=== PATIENT | male | born 1960 | race Caucasian/White ===

== ENCOUNTER → 2016-08-31 | Outpatient (CLI) | payer MEDICAID ==
--- NOTE | 2016-08-31 16:33 | CT ---
EXAMINATION TYPE: CT angio chest DATE OF EXAM: 08/31/2016 3:57 PM COMPARISON: NONE HISTORY: Abnormal chest x-ray at chiropractor. Thoracic aneurysm. CT DLP: 972.00 mGycm Automated exposure control for dose reduction was used. CONTRAST: CTA scan of the thorax is performed with IV Contrast, patient injected with 100 mL of Omnipaque 350, pulmonary embolism protocol. . FINDINGS: The lungs are clear. There is no significant axillary or hilar adenopathy. There is some shotty mediastinal adenopathy. There is no evidence of pulmonary embolus. The aortic root is dilated measuring 3.8 cm. At the level of the proximal arch, the aorta measures 3. 2 cm. The proximal descending thoracic aorta is normal in caliber measuring 2.8 cm. At the level of t he aortic hiatus, the aorta is normal in caliber measuring 2.4 cm. The heart is not enlarged. There i s no pleural or pericardial fluid. Visualized upper abdominal structures are normal. There is some minimal degenerative hypertrophic spondylosis within the spine. IMPRESSION: MINIMAL ASCENDING THORACIC AORTIC ANEURYSM.
== END | disposition home or self-care (01) ==
LOC: RADCTMAIN 15:27
PROVIDERS: ATTEND Internal Medicine
DX: I71.2 Thoracic aortic aneurysm, without rupture (principal)
CPT/HCPCS: 71275; Q9967

== ENCOUNTER → 2017-10-01 | Outpatient (CLI) | payer MEDICAID ==
--- NOTE | 2017-10-01 12:22 | CT ---
EXAMINATION TYPE: CT angio chest DATE OF EXAM: 10/01/2017 COMPARISON: August 31, 2016 HISTORY: f/u aortic aneurysm CT DLP: 709.2 mGycm CONTRAST: CTA thoracic aorta with 3-D reconstruction is performed and with IV Contrast, patient injected with 1 00 mL of Omnipaque 350. Contrast CTA of the thoracic aorta was performed from the lung apex through the upper abdomen. 3D re construction imaging obtained at a separate workstation. CT Chest: THORACIC AORTA: There is ectasia of the aortic root to noted measuring 3.7 cm AP dimension versus 3.8 cm previously. No evidence for aneurysm of the aortic arch and descending thoracic aorta. No complic ating factors such as dissection or retroperitoneal hematoma. LUNGS: The lungs are clear and free of infiltrate or atelectasis. No pulmonary nodule or mass is det ected. No pleural effusion or CT evidence of interstitial lung disease. MEDIASTINUM: No evidence for mediastinal hematoma. The heart is not enlarged. No evidence for med iastinal mass or adenopathy. HILAR STRUCTURES: No evidence for mass. No hilar adenopathy is appreciated. OTHER: No significant abnormality. IMPRESSION- Stable ectasia of the ascending thoracic aorta.
== END | disposition home or self-care (01) ==
LOC: RADCTMAIN 10:30
PROVIDERS: ATTEND Internal Medicine
DX: I77.810 Thoracic aortic ectasia (principal)
CPT/HCPCS: 71275; Q9967

== ENCOUNTER 2020-04-04 13:30 | Day surgery (SDC) | payer MEDICAID ==
[2020-04-02 15:28] VITALS: BMI 31.6
[~2020-04-04 13:30] MED LIST: LACTATED RINGERS 1,000 ML IV SCH
[2020-04-04 13:59] VITALS: TEMP 98.9
[2020-04-04] MEDS ORDERED: LIDOCAINE 1% (10MG/ML) FOR IV START INTRADERMA ONE (14:04)
[2020-04-04] MEDS ORDERED: PROPOFOL 10 MG/ML 20 ML VIAL IV ONE (14:22)
--- NOTE | 2020-04-04 14:49 | P.PCN ---
Date of Procedure: 04/04/20 Preoperative Diagnosis: Screening Postoperative Diagnosis: Normal redundant colon Procedure(s) Performed: Colonoscopy Surgeon: Charito Biggs Pathology: none sent Condition: stable Disposition: same day Indications for Procedure: Patient presents for screening colonoscopy. Risks, benefits and alternatives were presented to the patient. He did perfect consent prior to attending the endoscopy suite. Operative Findings: Overall normal colon, redundant Description of Procedure: The patient was brought into the endoscopy suite and placed in left lateral decubitus position and adequate sedation was achieved using conscious sedation. A digital rectal exam was performed and mild internal hemorrhoid were palpated. An endoscope was then placed in the rectum and advanced to the cecum as identified by landmarks including the appendiceal orifice and the ileocecal valve. The prep was good. The colon scope was then slowly withdrawn, examining for any mucosal in the pelvis. The cecum, ascending, transverse, descending and sigmoid colon were visualized adequately. There were no obvious neoplastic lesions in the colon. There were no large polyps noted throughout the colon. There was no evidence of diverticulosis. Retroflexion was performed in the rectum and mild internal hemorrhoids were visible. Excess air was removed, the colon scope withdrawn and the procedure terminated. The patient was then transferred to the recovery unit in stable condition. Repeat colonoscopy should be performed in 8 years.
[2020-04-04 15:19] VITALS: BP 125/74; PULSE 88; RESP 18
== END 2020-04-04 15:30 | disposition home or self-care (01) ==
LOC: ORWHC2ENDO 13:30
PROVIDERS: ATTEND Surgery
DX: K64.8 Other hemorrhoids (principal); Q43.8 Other specified congenital malformations of intestine; I10 Essential (primary) hypertension; E78.5 Hyperlipidemia, unspecified; I71.4 Abdominal aortic aneurysm, without rupture; F41.9 Anxiety disorder, unspecified; F32.9 Major depressive disorder, single episode, unspecified; Z79.82 Long term (current) use of aspirin; Z79.899 Other long term (current) drug therapy; Z80.0 Family history of malignant neoplasm of digestive organs; Z80.41 Family history of malignant neoplasm of ovary
CPT/HCPCS: 45378; J2704

== ENCOUNTER → 2020-09-16 | Outpatient (CLI) | payer MEDICAID ==
--- NOTE | 2020-09-16 15:53 | CT ---
EXAMINATION TYPE: CT angio chest DATE OF EXAM: 09/16/2020 2:15 PM COMPARISON: CTA October 01, 2017 and August 31, 2016. HISTORY: Thoracic aortic aneurysm. CT DLP: 630 mGycm Automated exposure control for dose reduction was used. CONTRAST: CTA scan of the thorax is performed without and with IV Contrast, patient injected with 100 mL of Iso rod 370, aneurysm protocol. 3D reconstructed images are created on an independent workstation and re viewed.. FINDINGS: LUNGS: The lungs remain grossly clear, there is no concerning parenchymal mass or nodule identified. No suspicious opacities or consolidation. There is no pleural effusion or pneumothorax seen. The tr acheobronchial tree is patent. MEDIASTINUM: Noncontrast images show no suspicious hyperdense material to suggest intramural hematoma in the proximal thoracic aorta. Satisfactory enhancement of the central pulmonary arteries. Stable 3 .9 cm aneurysmal of the ascending aorta axial image 22 unchanged from prior studies when accounting f or technical differences. The root of the thoracic aorta 4.0 cm coronal image 16 not significantly ch anged from prior study coronal image 41. No extension into the arch or descending aorta. Bovine type arch redemonstrated which is normal variant. There are no greater than 1 cm hilar or mediastinal lymp h nodes. No pericardial effusion is seen. No cardiomegaly. Mild biatrial dilatation and mild left v entricular dilatation redemonstrated. OTHER: No additional significant abnormality is seen. IMPRESSION: Stable 4.0 cm ascending aortic aneurysm.
== END ==
LOC: RADCTMAIN 13:20
PROVIDERS: ATTEND Internal Medicine
DX: I71.2 Thoracic aortic aneurysm, without rupture (principal)
CPT/HCPCS: 71275; Q9967

== ENCOUNTER 2021-09-19 10:21 | Day surgery (SDC) | payer MEDICAID ==
[2021-09-18 09:11] VITALS: BMI 32.4
[~2021-09-19 10:21] MED LIST changes: +HEPARIN SODIUM,PORCINE/PF 5,000 UNIT/0.5 ML SYRINGE SQ PRN; -LACTATED RINGERS 1,000 ML IV SCH
[2021-09-19] MEDS ORDERED: HYDROmorphone 0.5 MG/0.5 ML SYRINGE IVP PRN (10:32)
[2021-09-19] MEDS ORDERED: SCOPOLAMINE 1.5MG/72HR PATCH TRANSDERM ONE (10:32)
[2021-09-19] MEDS ORDERED: DEXAMETHASONE SOD PHOSPHATE 4 MG/ML 1 ML VIAL IV ONE (10:32)
[2021-09-19] MEDS ORDERED: MIDAZOLAM 2 MG/2 ML VIAL IV PRN (10:32)
[2021-09-19] MEDS ORDERED: LACTATED RINGERS 1,000 ML IV SCH (10:32)
[2021-09-19] MEDS ORDERED: ONDANSETRON 4 MG/2 ML VIAL IVP ONE (10:32)
[2021-09-19 10:52] LABS: Glucose,Whole Blood 95 mg/dL (75-99)
[2021-09-19] MEDS ORDERED: MIDAZOLAM 2 MG/2 ML VIAL IVP ONE (11:09)
[2021-09-19] MEDS ORDERED: fentaNYL (PF) 50 MCG/ML 2 ML AMP IVP ONE (11:09)
[2021-09-19] MEDS ORDERED: PROPOFOL 10 MG/ML 20 ML VIAL IV ONE (11:48)
[2021-09-19] MEDS ORDERED: LIDOCAINE 1% INJ 10MG/ML (20 ML MDV) ONE (11:48)
[2021-09-19] MEDS ORDERED: HYDROmorphone (PF) 1 MG/ML ONE (11:48)
[2021-09-19] MEDS ORDERED: SUCCINYLCHOLINE CHLORIDE 100 MG/5 ML SYR IV ONE (11:48)
[2021-09-19] MEDS ORDERED: ROPIVACAINE 5 MG/ML 30 ML VIAL ONE (11:48)
[2021-09-19] MEDS ORDERED: SODIUM CHLORIDE 0.9% (PF) 10 ML VIAL ONE (11:48)
[2021-09-19] MEDS ORDERED: ROCURONIUM 10 MG/ML (5 ML VIAL) IV ONE (11:48)
[2021-09-19] MEDS ORDERED: MIDAZOLAM 2 MG/2 ML VIAL ONE (11:48)
[2021-09-19] MEDS ORDERED: fentaNYL (PF) 50 MCG/ML 2 ML AMP ONE (11:48)
[2021-09-19] MEDS ORDERED: BUPIVACAIN-EPI 0.25%-1:200,000 30 ML VIAL SQ ONE ×2 (12:12)
[2021-09-19] MEDS ORDERED: LACTATED RINGERS 1,000 ML IV ONE (12:54)
--- NOTE | 2021-09-19 13:07 | P.OP ---
Date of Procedure: 09/19/21 Preoperative Diagnosis: Bilateral inguinal hernia Umbilical hernia Postoperative Diagnosis: Bilateral inguinal indirect hernia Umbilical hernia Procedure(s) Performed: Bilateral inguinal hernia repair with mesh Anesthesia: MARYSE Surgeon: Charito Biggs Pathology: none sent Condition: stable Disposition: same day Indications for Procedure: 60-year-old male presented to the surgery clinic with complaints of groin pain. On workup, he was found to have bilateral inguinal hernia. He also was noted to have a small umbilical hernia. Risks, benefits and alternatives were provided to patient. He did provide consent for the procedure. Operative Findings: Bilateral indirect inguinal hernia 1 cm umbilical hernia Description of Procedure: The patient was brought to the operating suite and placed in supine position. General endotracheal anesthesia was induced and arms were then tucked to the sides bilaterally and all pressure points were padded. SCDs were also placed in his bilateral lower extremities and were working throughout the entire case. Preoperative antibiotic given prior to the incision. A timeout was performed with all team members in agreement with correct patient, procedure and location. An incision was made over the palpable umbilical hernia site and an 8 mm trocar was placed through the hernia defect. The hernia measured approximately 1 cm. Pneumoperitoneum was then achieved. 2 additional incisions were made approxim ately 11 cm lateral to the umbilical incision and a millimeters trochars were placed. The patient was then placed in deep Trendelenburg position and the hernia sites are clearly visualized bilaterally. Both appear to be inguinal indirect hernias. The robot was then docked appropriately. Incision was then made just lateral to the medial umbilical ligament on the right side with the monopolar scissors and the peritoneal flap was created and was taken down towards Vickey's ligament. The flap was then extended laterally. Attention was then turned to the indirect inguinal hernia. The sac was then freed from the cord all while preserving the cord structures. At this point the indirect hernia was reduced. Attention was then turned towards the left side and incision was made lateral to the medial umbilical ligament on the left side with the monopolar scissors and the peritoneal flap was created area and this was taken down towards Vickey's ligament and the flap was extended laterally. Attention was then turned to the indirect inguinal hernia. The sac was then freed from the cord while preserving the cord structures. At this point the hernia was reduced. Once the entire space was appropriately dissected out, we brought the laparoscopic anatomic parietex progrip mesh and unrolled over the hernia sites bilaterally. Once appropriately in place without any folds or kinks, the peritoneal flap was closed using running 20V lock suture. Once this was completed, we removed all robotic instruments and undocked the robot. The umbilical fascial defect was closed with 0 Vicryl suture using a Clarke Mahmood device. This was done under laparoscopic guidance. All skin incisions were then closed with 4-0 Vicryl suture. The patient was awakened and taken to postanesthesia care unit in stable condition.
[2021-09-19 13:29] VITALS: TEMP 97.1
--- NOTE | 2021-09-19 13:29 | P.ANPRN ---
Procedure Note - Anesthesia - Nerve Block Performed Bilateral Erector Spinae Single Time Out Performed: Yes (1108) Date of Procedure: 09/19/21 Procedure Start Time: 11:09 Procedure Stop Time: 11:16 Location of Patient: PreOp Indication: Acute Post-Operative Pain, Requested by Surgeon Specifically requested for management of pain by : Charito Biggs Sedation Type: Sedate with meaningful contact maintained Preparation: Sterile Prep Position: Prone Catheter: None Needle Types: Pajunk Needle Gauge: 21 Ultrasound used to visualize needle placement: Yes Ultrasound used to observe medication spread: Yes Injectate: 0.5% Ropivacaine (see comment for volume) (15cc + 15cc nacl pf) Blood Aspirated: No Pain Paresthesia on Injection Noted: No Resistance on Injection: Normal Image Stored and Saved: Yes Events: Uneventful and Well Tolerated
[2021-09-19 14:07] VITALS: RESP 18
[2021-09-19 14:32] VITALS: BP 119/78; PULSE 70
== END 2021-09-19 14:52 | disposition home or self-care (01) ==
LOC: OR 10:21
PROVIDERS: ATTEND Surgery
DX: K40.20 Bilateral inguinal hernia, without obstruction or gangrene, not specified as recurrent (principal); K42.9 Umbilical hernia without obstruction or gangrene; D50.9 Iron deficiency anemia, unspecified; F32.A Depression, unspecified; I10 Essential (primary) hypertension; D72.829 Elevated white blood cell count, unspecified; K64.9 Unspecified hemorrhoids; E78.00 Pure hypercholesterolemia, unspecified; Z80.41 Family history of malignant neoplasm of ovary; Z80.0 Family history of malignant neoplasm of digestive organs; F41.9 Anxiety disorder, unspecified; I71.2 Thoracic aortic aneurysm, without rupture; Z79.899 Other long term (current) drug therapy; Z88.8 Allergy status to other drugs, medicaments and biological substances
CPT/HCPCS: 49650; S2900; 64999

== ENCOUNTER → 2022-05-13 | Outpatient (CLI) | payer MEDICAID ==
--- NOTE | 2022-05-13 12:59 | CTL ---
EXAMINATION TYPE: CT Low Dose Lung DATE OF EXAM ORDERED: 05/13/2022 HISTORY: Long-term tobacco use. Lung cancer screening CT DLP: 120.[address] CTDI: 3.4 mGy Automated exposure control for dose reduction was used. SCREENING VISIT: Baseline COMPARISON: Prior CTA chest studies September 16, 2020 and older 1's 2017 and 2016 TECHNIQUE: Low dose computed tomography scan was performed through the chest at 1 mm thick sections a nd reconstructed images in multiple planes at 1 mm and [address] DIAGNOSTIC QUALITY: Satisfactory FINDINGS: LUNG NODULES: Present, detailed below: A few scattered micronodules are redemonstrated. No significant greater than 5 mm pulmonary nodules o r masses. LUNGS: COPD: Severity: Mild Fibrosis: Severity: None Lymph nodes: None Other findings: Known ascending aortic aneurysm up to 4.2 cm in size redemonstrated. RIGHT PLEURAL SPACE: Effusion: None Calcification: None Thickening: None Pneumothorax: None LEFT PLEURAL SPACE: Effusion: None Calcification: None Thickening: None Pneumothorax: None HEART: Heart Size: Normal Coronary Calcification: None Pericardial Effusion: None OTHER FINDINGS: Upper abdomen: None Bony thorax: None Supraclavicular region: None Other: None IMPRESSION: No significant greater than [address] LUNG RAD AND CT CHEST RECOMMENDATION: Lung-Rad 1 Negative: Continue annual screening with LDCT in 12 months. S Modifier (other clinically significant findings): S Redemonstration of known thoracic aortic aneurysm.
== END | disposition home or self-care (01) ==
LOC: RADCTMAIN 10:19
PROVIDERS: ATTEND Internal Medicine
DX: Z12.2 Encounter for screening for malignant neoplasm of respiratory organs (principal); F17.218 Nicotine dependence, cigarettes, with other nicotine-induced disorders
CPT/HCPCS: 71271

== ENCOUNTER → 2023-09-23 | Outpatient (CLI) | payer MEDICAID ==
--- NOTE | 2023-09-23 13:14 | CTL ---
EXAMINATION TYPE: CT Low Dose Lung DATE OF EXAM ORDERED: 09/23/2023 HISTORY: . Lung cancer screening CT DLP: 84.[address] CTDI: 2.4 mGy Automated exposure control for dose reduction was used. SCREENING VISIT: Follow-up. COMPARISON: 05/13/2022. TECHNIQUE: Low dose computed tomography scan was performed through the chest at 1 mm thick sections a nd reconstructed images in multiple planes at 1 mm and [address] DIAGNOSTIC QUALITY: Satisfactory FINDINGS: LUNG NODULES: 5 mm right middle lobe pulmonary nodule on series 4 image 132. This is along the minor fissure.. LUNGS: COPD: Severity: Mild apical predominant paraseptal emphysema and mild diffuse centrilobular emphysema . Fibrosis: Severity: None Lymph nodes: No adenopathy. Other findings: RIGHT PLEURAL SPACE: Effusion: None Calcification: None Thickening: None Pneumothorax: None LEFT PLEURAL SPACE: Effusion: None Calcification: None Thickening: None Pneumothorax: None HEART: Heart Size: Normal Coronary Calcification: None Pericardial Effusion: None OTHER FINDINGS: Upper abdomen: None Bony thorax: None Supraclavicular region: None Other: None IMPRESSION: 1. Unchanged right middle lobe pulmonary nodule.. 2. Mild smoking-related change. CT LUNG RAD AND CT CHEST RECOMMENDATION: Lung-Rad 2 Benign Appearance or Behavior: Continue annual sc reening with LDCT in 12 months. S Modifier (other clinically significant findings):
== END | disposition home or self-care (01) ==
LOC: RADCTMAIN 11:40
PROVIDERS: ATTEND Internal Medicine
DX: Z12.2 Encounter for screening for malignant neoplasm of respiratory organs (principal); R91.1 Solitary pulmonary nodule; F17.210 Nicotine dependence, cigarettes, uncomplicated
CPT/HCPCS: 71271

== ENCOUNTER → 2023-11-03 | Outpatient (CLI) | payer MEDICAID ==
--- NOTE | 2023-11-03 11:55 | CA ---
Transthoracic Echo Report Name: Pj Feliciano Age: 62 Gender: M : 1960 Exam Date: 11/03/2023 09:25 Exam Location: [place] Echo Ht (in): 65 Wt (lb): 190 Ordering Physician: Carolann Mcdonald MD Attending/Referring Phys: Carolann Mcdonald MD Bonus Clerk Corinna Mackenzie, [facility] Procedure CPT: Indications: I10 HTN ESSENTIAL (PRIMARY) HYPERTENSION Cardiac Hx: Technical Quality: Fair Contrast 1: Total Dose (mL): Contrast 2: Total Dose (mL): MEASUREMENTS (Male / Female) Normal Values 2D ECHO LV Diastolic Diameter PLAX 3.3 cm 4.2 - 5.9 / 3.9 - 5.3 cm LV Systolic Diameter PLAX 2.4 cm IVS Diastolic Thickness 1.5 cm 0.6 - 1.0 / 0.6 - 0.9 cm LVPW Diastolic Thickness 1.7 cm 0.6 - 1.0 / 0.6 - 0.9 cm LV Relative Wall Thickness 1.0 RV Internal Dim ED PLAX 3.8 cm LA Volume 48.1 cm??? 18 - 58 / 22 - 52 cm??? LA Volume Index 23.8 cm???/m??? 16 - 28 cm???/m??? M-MODE Aortic Root Diameter MM 3.5 cm LA Systolic Diameter MM 2.7 cm LA Ao Ratio MM 0.8 AV Cusp Separation MM 1.7 cm DOPPLER AV Peak Velocity 101.7 cm/s AV Peak Gradient 4.1 mmHg AV Mean Velocity 70.2 cm/s AV Mean Gradient 2.2 mmHg AV Velocity Time Integral 18.7 cm LVOT Peak Velocity 93.6 cm/s LVOT Peak Gradient 3.5 mmHg LVOT Velocity Time Integral 19.2 cm MV Area PHT 3.7 cm??? Mitral E Point Velocity 60.4 cm/s Mitral A Point Velocity 67.2 cm/s Mitral E to A Ratio 0.9 MV Deceleration Time 205.3 ms MV E' Velocity 6.1 cm/s Mitral E to MV E' Ratio 9.8 FINDINGS Left Ventricle Moderately increased left ventricular wall thickness. Left ventricular cavity size normal. Normal left ventricular systolic function with no obvious regional wall motion abnormalities. Left ventricular ejection fraction is estimated at 55-60 %. Grade 1 diastolic dysfunction. Right Ventricle Moderate right ventricular dilatation. Right ventricular systolic pressure within normal limits. Right Atrium Normal right atrial size. Left Atrium Normal left atrial size. Mitral Valve Structurally normal mitral valve. Mitral valve thickened. Mild mitral annular calcification. Mild mitral regurgitation. Aortic Valve Trileaflet aortic valve. No aortic valve stenosis or regurgitation. Tricuspid Valve Structurally normal tricuspid valve. Mild tricuspid regurgitation. Pulmonic Valve Structurally normal pulmonic valve. Pericardium No pericardial effusion. Aorta Normal size aortic root and proximal ascending aorta. CONCLUSIONS Normal LV function Mild mitral regurgitation Previewed by: Dr. Srikanth Vincent MD (Electronically Signed) Final Date: 03 November 2023 11:54
--- NOTE | 2023-11-03 11:56 | CA ---
Exercise Stress Test Report Name: Pj Feliciano Exam Date: 11/03/2023 09:10 Exam Location: [place] Stress Ht (in): 65 Wt (lb): 190 BSA: 1.94 Ordering Phys: Carolann Mcdonald MD Referring Phys: Carolann Mcdonald MD Technologist: Grabiel Haywood Age: 62 Gender: M : 1960 Procedure CPT: Indications: I10 HTN ESSENTIAL (PRIMARY) HYPERTENSION ICD-10 Codes: Patient History: Medications: atorvastatin, losartan, aripeprazole, sertraline, lorazepam Meds past 24 hrs: Pretest Chest Pain: STRESS TEST Henry Protocol Exercise Duration (min:sec): 09:[address] Depressions (mm): Angina Score: Wagner Score: Resting HR (bpm): 67 Peak HR (bpm): 137 Resting BP (mmHg): 115 / 92 Peak BP (mmHg): 194 / 91 MPHR: 157 Target HR: 133 % MPHR: 87 METS: 10.3 Total Dose: Peak Dose: Atropine: Double Product: 30232 BP Response: Stress Termination: Reached target heart rate Stress Symptoms: NO SYMPTOMS Stress Summary: ECG ANALYSIS Resting ECG: Normal sinus rhythm normal axis normal intervals Stress ECG: Patient exercised on Henry protocol for 9 minutes achieving 10 metastases 85% of predicted maximal heart rate without chest pain or diagnostic ST segment depression CONCLUSIONS Good exercise tolerance Negative stress test by EKG criteria Dr. Srikanth Vincent MD (Electronically Signed) Final Date: 03 November 2023 11:55
== END | disposition home or self-care (01) ==
LOC: RADNMMAIN 08:45
PROVIDERS: ATTEND Internal Medicine
DX: I10 Essential (primary) hypertension (principal)
CPT/HCPCS: 93017; 93306

== ENCOUNTER → 2024-08-04 | Outpatient (CLI) | payer MEDICAID ==
--- NOTE | 2024-08-04 15:24 | US ---
EXAMINATION TYPE: US abdomen limited DATE OF EXAM: 08/04/2024 COMPARISON: NONE CLINICAL INDICATION: Male, 63 years old with history of D17.1 LIPOMA; Palpable right flank x 2/3 week s. Patient states he has had recent weight loss on purpose. TECHNIQUE: Sonographic images taken of area of concern FINDINGS: Right flank scanned. Superficial compressible lesion, avascular = 2.9 x 4.3 x 0.9 cm IMPRESSION: Superficial lesion just under the skin surface favored to represent a benign. This can b e confirmed with MRI or CT if clinically warranted. [facility], , 08/04/2024 3:22 PM
== END | disposition home or self-care (01) ==
LOC: RADUSWWP 14:32
PROVIDERS: ATTEND Internal Medicine
DX: D17.1 Benign lipomatous neoplasm of skin and subcutaneous tissue of trunk (principal); R63.4 Abnormal weight loss
CPT/HCPCS: 76705

== ENCOUNTER → 2024-10-20 | Outpatient (CLI) | payer MEDICAID ==
--- NOTE | 2024-10-20 13:58 | CT ---
EXAMINATION TYPE: CT angio chest, CT Low Dose Lung CT DLP: 594.8 (accession [id number]), 81 (accession [id number]) mGycm, Automated exposure control for dos e reduction was used. DATE OF EXAM: 10/20/2024 1:27 PM COMPARISON: CT low-dose lung 09/23/2023, 05/13/2022, CTA Chest 09/16/2020, 10/01/2017, 08/31/2016 CLINICAL INDICATION:Male, 63 years old with history of I71.23 ANEURYSM OF THE THORACIC AORTA; aneurys m (accession [id number]), personal tobacco use (accession [id number]) TECHNIQUE/CONTRAST: CTA scan of the thorax is performed without and with IV Contrast, patient injected with 100 ml mL of Isovue 370. 3D reconstructed images are created on an independent workstation and reviewed. Low dose computed tomography scan was performed through the chest at 1 mm thick sections and reconstr ucted images in multiple planes at 1 mm and [address] DIAGNOSTIC QUALITY: Satisfactory FINDINGS: Lungs/Pleura: No evidence of focal consolidation, pleural effusion or pneumothorax. Minimal dependent subsegmental atelectasis. Couple of scattered calcified granulomas. Stable right middle lobe perihil ar 4.0 mm pulmonary nodule (series 6, image 25). No new or enlarging pulmonary nodules. Mild centrilo bular and paraseptal emphysematous changes. Airway: Large airways are patent. Heart: Size within normal limits.No pericardial effusion. No significant coronary artery calcificatio ns. Vasculature: Bovine aortic arch. Stable size of fusiform aortic root aneurysm measuring 4.2 cm when m easured with similar technique. Stable ectasia of the ascending aorta measuring up to 3.9 cm. The barron cending thoracic aorta measures up to 2.6 cm. No evidence of intramural hematoma or dissection. No pu lmonary embolism. Mediastinum: No gross evidence of adenopathy. Musculoskeletal: No acute osseous abnormalities Soft Tissues: Mild bilateral gynecomastia. Lower neck: No significant findings. Upper Abdomen: Cholelithiasis. IMPRESSION: 1. Stable aneurysmal dilatation the aortic root measuring up to 4.2 cm when measured with similar audi hnique. Similar ectasia of the ascending thoracic aorta measuring up to 3.9 cm. 2. Stable right middle lobe 4 mm pulmonary nodule dating back to at least 2021 and considered benign. No new or enlarging pulmonary nodules. CT LUNG RAD AND CT CHEST RECOMMENDATION: Lung-Rad 2 Benign Ap pearance or Behavior: Continue annual screening with LDCT in 12 months. 3. Cholelithiasis. 4. Mild emphysematous changes. [facility], , 10/20/2024 1:55 PM
== END | disposition home or self-care (01) ==
LOC: RADCTMAIN 12:39
PROVIDERS: ATTEND Internal Medicine
DX: Z12.2 Encounter for screening for malignant neoplasm of respiratory organs (principal); F17.210 Nicotine dependence, cigarettes, uncomplicated; I71.23 Aneurysm of the descending thoracic aorta, without rupture; R91.1 Solitary pulmonary nodule; K80.20 Calculus of gallbladder without cholecystitis without obstruction; J43.9 Emphysema, unspecified
CPT/HCPCS: 71275; 71271; Q9967